=== PATIENT | male | born 1990 | race African-American/Black ===

== ENCOUNTER 2021-03-09 14:37 | Emergency (ER) | payer OTHER, SELFPAY ==
--- NOTE | 2021-03-09 16:37 | RAD REPORT ---
EXAM DESCRIPTION: RAD - Foot Left 3 View - 03/09/2021 3:59 pm CLINICAL HISTORY: PAINleft foot, no precipitating injury or focal site of pain detailed COMPARISON: No comparisons FINDINGS: No fracture, dislocation or periosteal reaction. No acute or destructive bony process. No air or foreign body in the soft tissues. IMPRESSION: Negative left foot examination.
--- NOTE | 2021-03-09 17:18 | ER ---
Nurse's Notes [facility] Name: Santy Blackburn Age: 30 yrs Sex: Male : 1990 Arrival Date: 03/09/2021 Time: 14:42 Bed 12 Private MD: Diagnosis: Pain in right foot Presentation: 03/09 15:08 Chief complaint: Patient states: was released from nursing home for about three months; did not vg1 have foot seen while there, states has been having Left foot pain for about 8 months; states is unable to bear weight on foot, states 'I have to tippy toe to walk around bc of the pain.'. Coronavirus screen: Vaccine status: Patient reports receiving the 1st dose of the Covid vaccine. Client denies travel out of the [place] in the last 14 days. Ebola Screen: Patient negative for fever greater than or equal to 101.5 degrees Fahrenheit, and additional compatible Ebola Virus Disease symptoms. Initial Sepsis Screen: Does the patient meet any 2 criteria? No. Patient's initial sepsis screen is negative. Does the patient have a suspected source of infection? No. Patient's initial sepsis screen is negative. Risk Assessment: Do you want to hurt yourself or someone else? Patient reports no desire to harm self or others. Onset of symptoms was July 2020. 15:08 Method Of Arrival: Ambulatory vg1 15:08 Acuity: ESTEBAN 4 vg1 Triage Assessment: 15:14 General: Appears in no apparent distress. uncomfortable, Behavior is calm, cooperative. vg1 Pain: Complains of pain in left foot Pain currently is 10 out of 10 on a pain scale. Musculoskeletal: Circulation, motion, and sensation intact. Historical: - Allergies: 15:14 No Known Allergies; vg1 - Home Meds: 15:14 None [Active]; vg1 - PMHx: 15:14 None; vg1 - PSHx: 15:14 None; vg1 - Immunization history:: Client reports receiving the 1st dose of the Covid vaccine. - Social history:: Smoking status: Patient reports the use of cigarette tobacco products, smokes one-half pack cigarettes per day. - Family history:: not pertinent. Screenin:24 Abuse screen: Denies threats or abuse. Denies injuries from another. Nutritional jh5 screening: No deficits noted. Tuberculosis screening: No symptoms or risk factors identified. Fall Risk None identified. Vital Signs: 15:08 BP 124 / 74; Pulse 76; Resp 16; Temp 98.1; Pulse Ox 99% ; Height 6 ft. 6 in. (198.12 vg1 cm); Pain 10/10; ED Course: 14:42 Patient arrived in ED. mr 15:12 Triage completed. vg1 15:14 Arm band placed on. vg1 15:59 Foot Left 3 View XRAY In Process Unspecified. EDID 16:52 Izzy Sharma MD is Attending Physician. [facility] 17:24 Patient has correct armband on for positive identification. Call light in reach. 5 17:24 No provider procedures requiring assistance completed. Patient did not have IV access [facility] during this emergency room visit. Administered Medications: No medications were administered Outcome: 17:17 Discharge ordered by . [facility] 17:24 Discharged to home ambulatory. 5 17:24 Condition: good 17:24 Discharge instructions given to patient, significant other, Instructed on discharge instructions, follow up and referral plans. medication usage, safety practices, Demonstrated understanding of instructions. 17:25 Patient left the ED. 5 Signatures: Dispatcher [employer] LIGAIID Tamanna Tripathi Izzy Sharma MD MD ma2 Shyla Montano, RN RN jah1 Anika Garcia, RN RN 5 Corrections: (The following items were deleted from the chart) 15:14 15:14 Allergies: No Known Allergies; vg1 vg1 15:14 15:14 Allergies: PENICILLINS; vg1 vg1
--- NOTE | 2021-03-09 17:18 | EDPHYS ---
Physician Documentation [facility] Name: Santy Blackburn Age: 30 yrs Sex: Male : 1990 Arrival Date: 03/09/2021 Time: 14:42 Bed 12 Private MD: ED Physician Izzy Sharma HPI: 03/09 17:16 This 30 yrs old Black Male presents to ER via Ambulatory with complaints of Foot Injury.ma2 17:16 The patient presents with pain. Onset: The symptoms/episode began/occurred gradually, 8 ma2 month(s) ago. Associated signs and symptoms: Pertinent negatives: numbness, swelling, vomiting, warmth. Severity of symptoms: At their worst the symptoms were very mild, in the emergency department the symptoms have resolved. The patient has not experienced similar symptoms in the past. Historical: - Allergies: 15:14 No Known Allergies; vg1 - Home Meds: 15:14 None [Active]; vg1 - PMHx: 15:14 None; vg1 - PSHx: 15:14 None; vg1 - Immunization history:: Client reports receiving the 1st dose of the Covid vaccine. - Social history:: Smoking status: Patient reports the use of cigarette tobacco products, smokes one-half pack cigarettes per day. - Family history:: not pertinent. ROS: 17:16 MS/extremity: Negative for bite. ma2 17:16 Constitutional: Negative for fever, chills, and weight loss. 17:16 All other systems are negative. Exam: 17:16 Constitutional: This is a well developed, well nourished patient who is awake, alert, ma2 and in no acute distress. Chest/axilla: Normal chest wall appearance and motion. Nontender with no deformity. No lesions are appreciated. Cardiovascular: Regular rate and rhythm with a normal S1 and S2. No gallops, murmurs, or rubs. Normal PMI, no JVD. No pulse deficits. Abdomen/GI: Soft, non-tender, with normal bowel sounds. No distension or tympany. No guarding or rebound. No evidence of tenderness throughout. Skin: Warm, dry with normal turgor. Normal color with no rashes, no lesions, and no evidence of cellulitis. MS/ Extremity: Pulses equal, no cyanosis. Neurovascular intact. Full, normal range of motion. Neuro: Awake and alert, GCS 15, oriented to person, place, time, and situation. Cranial nerves II-XII grossly intact. Motor strength 5/5 in all extremities. Sensory grossly intact. Cerebellar exam normal. Normal gait. Vital Signs: 15:08 BP 124 / 74; Pulse 76; Resp 16; Temp 98.1; Pulse Ox 99% ; Height 6 ft. 6 in. (198.12 vg1 cm); Pain 10/10; MDM: 17:06 Patient medically screened. ma2 17:16 Differential diagnosis: fracture, sprain, arthritis, gout. Data reviewed: vital signs, ma2 nurses notes. Counseling: I had a detailed discussion with the patient and/or guardian regarding: the historical points, exam findings, and any diagnostic results supporting the discharge/admit diagnosis, the presence of at least one elevated blood pressure reading (>120/80) during this emergency department visit, the need for outpatient follow up. Response to treatment: the patient's symptoms have markedly improved after treatment. 03/09 15:16 Order name: Foot Left 3 View XRAY; Complete Time: 16:54 vg1 Administered Medications: No medications were administered Disposition Summary: 03/09/21 17:17 Discharge Ordered Location: Home ma2 Condition: Stable ma2 Diagnosis - Pain in right foot ma2 Followup: ma2 - With: Private Physician - When: Tomorrow - Reason: If symptoms return, Continuance of care Discharge Instructions: - Discharge Summary Sheet ma2 - Musculoskeletal Pain ma2 Forms: - Medication Reconciliation Form ma2 - Thank You Letter ma2 - Antibiotic Education ma2 - Prescription Opioid Use ma2 Prescriptions: - Medrol (Sergio) 4 mg Oral Tablets, Dose Pack - take 1 tablet by ORAL route as directed - follow package instructions; 1 ma2 packet; Refills: 0, Product Selection Permitted Signatures: Dispatcher [employer] EDMS Izzy Sharma MD MD ma2 Shyla Montano RN RN vg1 Corrections: (The following items were deleted from the chart) 15:14 15:14 Allergies: No Known Allergies; vg1 vg1 15:14 15:14 Allergies: PENICILLINS; vg1 vg1
[2021-03-09 17:39] VITALS: BP 124/74; TEMP 98.1; O2SAT 99
== END 2021-03-09 17:25 | disposition home or self-care (01) ==
LOC: ER 14:37
DX: M79.671 Pain in right foot (principal); F17.210 Nicotine dependence, cigarettes, uncomplicated
CPT/HCPCS: 99283